=== PATIENT | male | born 1990 | race Caucasian/White ===

== ENCOUNTER → 2020-11-08 | Outpatient (REF) | LOC: M EMP 09:03 | PROVIDERS: ATTEND Family Medicine | DX: Z11.52 Encounter for screening for COVID-19 (principal) ==

== ENCOUNTER → 2020-11-11 | Outpatient (REF) | LOC: M LABSMTC 09:33 | PROVIDERS: ATTEND Pediatrics | DX: Z11.52 Encounter for screening for COVID-19 (principal) ==

== ENCOUNTER → 2021-01-10 | Outpatient (REF) | payer BC | LOC: M SFHCPLAZ 16:41 | PROVIDERS: ATTEND Physician Assistant Medical | DX: Z53.20 Procedure and treatment not carried out because of patient's decision for unspecified reasons (principal) ==

== ENCOUNTER → 2021-05-15 | Outpatient (CLI) | payer BC | LOC: M PLALAB 09:03 | PROVIDERS: ATTEND Family Medicine | DX: Z13.79 Encounter for other screening for genetic and chromosomal anomalies (principal) ==

== ENCOUNTER → 2022-01-11 | Outpatient (REF) ==
[2022-01-11 12:20] LABS: RSV AMPLIFICATION NEGATIVE (NEGATIVE)
== END ==
LOC: M EMP 10:34
PROVIDERS: ATTEND Family Medicine
DX: Z20.822 Contact with and (suspected) exposure to COVID-19 (principal)

== ENCOUNTER → 2022-01-23 | Outpatient (REF) ==
[2022-01-23 09:29] LABS: RSV AMPLIFICATION NEGATIVE (NEGATIVE)
== END ==
LOC: M EMP 07:40
PROVIDERS: ATTEND Family Medicine
DX: Z20.822 Contact with and (suspected) exposure to COVID-19 (principal)

== ENCOUNTER → 2022-05-02 | Outpatient (REF) | LOC: M EMP 09:19 | PROVIDERS: ATTEND Family Medicine | DX: Z11.52 Encounter for screening for COVID-19 (principal) ==

== ENCOUNTER → 2022-07-23 | Outpatient (REF) | LOC: M EMP 15:16 | PROVIDERS: ATTEND Family Medicine | DX: Z11.52 Encounter for screening for COVID-19 (principal) ==

== ENCOUNTER → 2022-08-14 | Outpatient (REF) | LOC: M EMP 08:43 | PROVIDERS: ATTEND Family Medicine | DX: Z11.52 Encounter for screening for COVID-19 (principal) ==

== ENCOUNTER → 2023-02-07 | Outpatient (CLI) | payer BC | LOC: M PLAIMG 13:07 | PROVIDERS: ATTEND Physician Assistant Medical | DX: M25.531 Pain in right wrist (principal) ==

== ENCOUNTER → 2023-11-13 | Outpatient (CLI) | payer BC ==
[2023-11-18 09:23] LABS: QuantiFERON-TB Gold Plus NEGATIVE (NEGATIVE)
== END ==
LOC: M PLAIMG 08:03
PROVIDERS: ATTEND Student in an Organized Health Care Education/Training Program
DX: Z11.1 Encounter for screening for respiratory tuberculosis (principal); M25.562 Pain in left knee

== ENCOUNTER → 2023-11-26 | Outpatient (CLI) | payer BC | LOC: M PLAIMG 07:40 | PROVIDERS: ATTEND Student in an Organized Health Care Education/Training Program | DX: M25.531 Pain in right wrist (principal) ==